=== PATIENT | male | born 1985 ===

== ENCOUNTER 2019-01-28 16:14 | Emergency (ER) | payer BC, OTHER ==
[2019-01-28 16:27] VITALS: BP 139/92
--- NOTE | 2019-01-28 17:31 | UC ---
Back Pain HPI - HPI Summary HPI Summary: About 8:15 this morning Mr. Beavers slipped on the ice when he jumped out of his pickup truck. He said down hard onto the right side of his buttock. At first it wasn't too bad but over the course of days worsened worsened. Now he is having pain down his leg. He denies any weakness or paresthesias. He denies any change in bowels or bladder. - History of Current Complaint Chief Complaint: UCBackPain Stated Complaint: BACK INJURY Time Seen by Provider: 01/28/19 17:08 Pain Intensity: 7 - Allergies/Home Medications Allergies/Adverse Reactions: Allergies Allergy/AdvReac Type Severity Reaction Status Date / Time No Known Allergies Allergy Verified 01/28/19 16:27 Home Medications: Home Medications NK [No Home Medications Reported] 01/28/19 [History Confirmed 01/28/19] PMH/Surg Hx/FS Hx/Imm Hx Previously Healthy: Yes - Surgical History Surgical History: Yes Surgery Procedure, Year, and Place: wisdom teeth - Social History Alcohol Use: Daily Substance Use Type: None Smoking Status (MU): Never Smoked Tobacco Review of Systems All Other Systems Reviewed And Are Negative: Yes Physical Exam - Summary Physical Exam Summary: He is nontoxic in appearance with stable vital signs. Triage Information Reviewed: Yes Appearance: Well-Appearing Vital Signs: Initial Vital Signs Temp 98.0 F 01/28/19 16:23 Pulse 74 01/28/19 16:23 Resp 16 01/28/19 16:23 BP 139/92 01/28/19 16:23 Pulse Ox 100 01/28/19 16:23 Vital Signs Reviewed: Yes Neck exam: Normal Abdominal Exam: Normal Musculoskeletal Exam: Other - He has a mild straight leg raise at about 40 on the right. He is tender in the right sciatic area to palpation. Neurological Exam: Normal Back Pain Course/Dx - Course Course Of Treatment: He has wrenched his low back a little bit and is having some right-sided sciatic symptoms. I recommended ibuprofen and I'm going to give him a low dose of Ativan for at night for the next couple of nights as a muscle relaxer. - Differential Dx/Diagnosis Provider Diagnosis: Low back sprain Discharge ED - Sign-Out/Discharge Documenting (check all that apply): Patient Departure All imaging exams completed and their final reports reviewed: No Studies - Discharge Plan Condition: Stable Disposition: HOME Patient Education Materials: Low Back Strain (ED) Referrals: No Primary Care Phys,NOPCP [Primary Care Provider] - - Billing Disposition and Condition Condition: STABLE Disposition: Home
== END 2019-01-28 17:47 | disposition home or self-care (01) ==
LOC: UCEAST 16:14
DX: S33.5XXA Sprain of ligaments of lumbar spine, initial encounter (principal); W00.2XXA Other fall from one level to another due to ice and snow, initial encounter; Y93.39 Activity, other involving climbing, rappelling and jumping off; Y92.9 Unspecified place or not applicable
CPT/HCPCS: 99212; G0463